=== PATIENT | male | born 1960 | race Caucasian/White ===

== ENCOUNTER 2018-04-15 08:01 | Day surgery (SDC) | payer BC ==
[2018-04-15 08:28] VITALS: BMI 27.3
[2018-04-15 08:50] VITALS: O2SAT 100
[2018-04-15] MEDS ORDERED: Sodium Chloride 0.9% 500 ML IV ONE ×3 (08:53→11:30)
[2018-04-15] MEDS ORDERED: Propofol 10 mg/ml Inj (20 ML) ONE ×2 (10:55)
[2018-04-15] MEDS ORDERED: Midazolam 2 MG/2 ML VIAL ONE (10:55)
[2018-04-15 11:53] VITALS: PULSE 57; TEMP 97.1
[2018-04-15 12:40] VITALS: BP 154/70; RESP 15
== END 2018-04-15 12:43 | disposition home or self-care (01) ==
LOC: C.ENDO 08:01
PROVIDERS: ATTEND Internal Medicine Gastroenterology
DX: Z12.11 Encounter for screening for malignant neoplasm of colon (principal); Z80.0 Family history of malignant neoplasm of digestive organs; K64.1 Second degree hemorrhoids; K57.30 Diverticulosis of large intestine without perforation or abscess without bleeding; K62.1 Rectal polyp; D12.5 Benign neoplasm of sigmoid colon; E11.9 Type 2 diabetes mellitus without complications; I25.10 Atherosclerotic heart disease of native coronary artery without angina pectoris; Z95.5 Presence of coronary angioplasty implant and graft; E78.5 Hyperlipidemia, unspecified; Z79.84 Long term (current) use of oral hypoglycemic drugs; Z79.899 Other long term (current) drug therapy; I25.2 Old myocardial infarction
CPT/HCPCS: 45385; 82948; 88305; J2001; J2250; J2704; J7030